=== PATIENT | female | born 1950 | race Caucasian/White ===

== ENCOUNTER → 2016-12-12 | Outpatient (CLI) | payer MEDICARE, OTHER ==
[~2016-12-12] MED LIST: BENICAR40 MG PO; CEFTIN500 M1 PO; COUMADIN5 MG PO; L-LYSINE1000 MG PO; LEVAQUIN250 MG; NORVASC10 MG PO; PRESERVISION A1 EAC2 PO; PROTONIX40 MG PO; TYLENOL325 MG; VITAMIN D2000 UNI1 PO; XOPENEX HF45 MCG/INH INH
== END | disposition disaster alternative care site (69) ==
LOC: GRAD 13:00
DX: N20.0 Calculus of kidney (principal); N28.1 Cyst of kidney, acquired